=== PATIENT | female | born 1965 | race Caucasian/White ===

== ENCOUNTER 2016-09-21 18:40 | Emergency (ER) | payer BC ==
[2016-09-21 20:22] VITALS: BP 142/68
--- NOTE | 2016-09-21 21:01 | UC ---
Bite Injury/Animal HPI - HPI Summary HPI Summary: her cat bit her right hand yesterday. She came in and was placed on Augmentin. 3 puncture wounds on 3rd and 4th fingers of right hand. Concerned because it seems more angry today, slightly more swollen. Not particularly more painful. No streaking up arm. NO fever. She is "extra paranoid" because she had a terrible necrotizing fasciitis of right knee a few years ago. - History of Current Complaint Chief Complaint: UCBiteInjury Stated Complaint: RECHECK CAT BITE Time Seen by Provider: 09/21/16 20:36 Hx Obtained From: Patient Hx Last Menstrual Period: over one year Severity Currently: Mild Severity Initially: Mild Onset/Duration: Sudden Onset, Lasting Hours - 24 Type of Bite: Animal - cat, her own pet. She tried to help it get unstuck from a plastic bag and cat panicked and bit Has Animal Been Immunized?: Yes Character: Puncture Aggravating Factor(s): Nothing Alleviating Factor(s): Nothing Associated Signs And Symptoms: Positive: Erythema, Drainage - clear serous drainage today, Swelling. Negative: Fever Hx of Bite: Provoked by: - cat stuck, panicked Animal Available for Observation: Yes - Risk Factors Infection/Sepsis Risk Factors: Full-Thickness Puncture - Allergies/Home Medications Allergies/Adverse Reactions: Allergies Allergy/AdvReac Type Severity Reaction Status Date / Time No Known Allergies Allergy Verified 09/21/16 20:12 Home Medications: Home Medications Acetaminophen TAB* [Tylenol TAB*] 650 mg PO Q4H PRN 09/21/16 [History Confirmed 09/21/16] PMH/Surg Hx/FS Hx/Imm Hx Previously Healthy: Yes Endocrine History Of: Denies: Diabetes, Thyroid Disease Cardiovascular History Of: Denies: Cardiac Disorders, Hypertension, Pacemaker/ICD, Congestive Heart Failure Respiratory History Of: Denies: COPD, Asthma, Bronchitis, Pulmonary Embolism GI/ History Of: Denies: Ulcer, Kidney Stones Neurological History Of: Denies: Seizures, Migraine Psychological History Of: Denies: Anxiety, Depression - Surgical History Surgical History: Yes Surgery Procedure, Year, and Place: TUBAL LIGATION--1988; right knee surgeries: [facility] 12/2013, [facility] 2013 x 3 - Family History Known Family History: Negative: Respiratory Disease, Blood Disorder - Social History Occupation: Employed Full-time Lives: With Family Alcohol Use: Rare Substance Use Type: None Smoking Status (MU): Never Smoked Tobacco Have You Smoked in the Last Year: No - Immunization History Most Recent Influenza Vaccination: never Most Recent Tetanus Shot: 2014 Most Recent Pneumonia Vaccination: never Review of Systems Constitutional: Negative Skin: Other - redness, swelling, punctures Eyes: Negative ENT: Negative Respiratory: Negative Cardiovascular: Negative Gastrointestinal: Negative Genitourinary: Negative Motor: Negative Neurovascular: Negative Musculoskeletal: Negative Neurological: Negative Psychological: Negative All Other Systems Reviewed And Are Negative: Yes Physical Exam Triage Information Reviewed: Yes Appearance: Well-Appearing, No Pain Distress, Well-Nourished Vital Signs: Initial Vital Signs Temp 98.3 F 09/21/16 20:15 Pulse 71 09/21/16 20:15 Resp 15 09/21/16 20:15 BP 142/68 09/21/16 20:15 Pulse Ox 100 09/21/16 20:15 Vital Signs Reviewed: Yes Eye Exam: Normal Neck exam: Normal Respiratory Exam: Normal Cardiovascular Exam: Normal Musculoskeletal Exam: Normal Neurological Exam: Normal Psychological Exam: Normal Skin Exam: Other - 3 puncture wounds: two on dorsum 3rd finger, one on palmar aspect 4th finger. Mild surrounding redness and swelling. Able to make a fist and fully extend fingers with minimal discomfort. No significant tenderness on palpation over tendons. Bite Injury Course/Dx - Course Course Of Treatment: I do not see any sign of significant infection. This appears to be a puncture wound/cat bite that is inflamed. She is on the appropriate antibiotic. - Differential Dx/Diagnosis Differential Diagnosis/HQI/PQRI: Cellulitis, Puncture, Superficial Infection, Deep Space Infection Provider Diagnoses: cat bite Discharge - Discharge Plan Condition: Stable Disposition: HOME Patient Education Materials: Animal Bite (ED) Referrals: Cindi Chacon PA [Primary Care Provider] - Additional Instructions: Cat bites are notorious for being sore and swollen the day after the bite. That is mainly due to inflammation and tissue swelling. The bites should start to feel and look better as the days go by. Continue the Augmentin. Keep any oozy punctures clean with soap and water, dab some topical antibiotic ointment on them, and keep them covered with a band-aid. Ice to help diminish the swelling.
== END 2016-09-21 21:01 | disposition home or self-care (01) ==
LOC: UCCORT 18:40
DX: S61.232D Puncture wound without foreign body of right middle finger without damage to nail, subsequent encounter (principal); S61.234D Puncture wound without foreign body of right ring finger without damage to nail, subsequent encounter; W55.01XD Bitten by cat, subsequent encounter
CPT/HCPCS: 99211; G0463

== ENCOUNTER 2017-03-13 19:04 | Emergency (ER) | payer BC ==
--- NOTE | 2017-03-13 19:35 | UC ---
Bite Injury/Animal HPI - HPI Summary HPI Summary: Cat bite to base of R thumb on palm side while trying to trim cat's nails. Has been bitten before, has taken augmentin before. Hx of necrotizing fasciitis in R knee 3 years ago. Cat is UTD on immunizations and vet care. - History of Current Complaint Stated Complaint: CAT BITE Time Seen by Provider: 03/13/17 19:14 Hx Obtained From: Patient Hx Last Menstrual Period: over one year ?: No Severity Currently: Mild Severity Initially: Mild Onset/Duration: Sudden Onset Type of Bite: Animal Has Animal Been Immunized?: Yes Character: Puncture Associated Signs And Symptoms: Positive: Negative Hx of Bite: Provoked by: - caring for cat's nails Animal Available for Observation: Yes Animal Control Notified: Yes - Allergies/Home Medications Allergies/Adverse Reactions: Allergies Allergy/AdvReac Type Severity Reaction Status Date / Time No Known Allergies Allergy Verified 09/21/16 20:12 PMH/Surg Hx/FS Hx/Imm Hx Previously Healthy: Yes - Hx of necrotizing fasciitis - Surgical History Surgical History: Yes Surgery Procedure, Year, and Place: TUBAL LIGATION--1988; right knee surgeries: [facility] [place] 12/2013, [facility] x 3 - Family History Known Family History: Negative: Respiratory Disease, Blood Disorder - Social History Lives: With Family Alcohol Use: Rare Substance Use Type: None Smoking Status (MU): Never Smoked Tobacco Have You Smoked in the Last Year: No - Immunization History Most Recent Influenza Vaccination: never Most Recent Tetanus Shot: 2013 Most Recent Pneumonia Vaccination: never Review of Systems Constitutional: Negative Skin: Other - cat bite to R hand Eyes: Negative ENT: Negative Respiratory: Negative Cardiovascular: Negative Gastrointestinal: Negative Genitourinary: Negative Motor: Negative Neurovascular: Negative Musculoskeletal: Negative Neurological: Negative Psychological: Negative All Other Systems Reviewed And Are Negative: Yes Physical Exam Triage Information Reviewed: Yes Appearance: Well-Appearing, No Pain Distress, Well-Nourished Vital Signs Reviewed: Yes Eye Exam: Normal Eyes: Positive: Conjunctiva Clear ENT Exam: Normal ENT: Positive: Normal ENT inspection, Hearing grossly normal, Pharynx normal, TMs normal Dental Exam: Normal Neck exam: Normal Neck: Positive: Supple, Nontender, No Lymphadenopathy Respiratory Exam: Normal Respiratory: Positive: Chest non-tender, Lungs clear, Normal breath sounds, No respiratory distress, No accessory muscle use Cardiovascular Exam: Normal Cardiovascular: Positive: RRR, No Murmur Musculoskeletal Exam: Normal Musculoskeletal: Positive: Strength Intact, ROM Intact Neurological Exam: Normal Neurological: Positive: Alert Psychological Exam: Normal Skin Exam: Other - volar base of R thumb PW with minimal local swelling Bite Injury Course/Dx - Differential Dx/Diagnosis Provider Diagnoses: cat bite to R hand Discharge - Discharge Plan Condition: Stable Disposition: HOME Prescriptions: Amoxicillin/Clavulanate TAB* [Augmentin TAB 875*] 875 mg PO BID #10 tab Patient Education Materials: Animal Bite (ED) Referrals: Cindi Chacon PA [Primary Care Provider] - Additional Instructions: If you have marked increase in redness, swelling, or if you have streaking up the arm, please come back right away.
[2017-03-13 20:00] VITALS: BP 153/86
== END 2017-03-13 20:00 | disposition home or self-care (01) ==
LOC: UCCORT 19:04
DX: S61.031A Puncture wound without foreign body of right thumb without damage to nail, initial encounter (principal); W55.01XA Bitten by cat, initial encounter; Y93.9 Activity, unspecified; Y92.9 Unspecified place or not applicable; M72.6 Necrotizing fasciitis
CPT/HCPCS: 99212; G0463